=== PATIENT | female | born 1950 | race Caucasian/White ===

== ENCOUNTER 2020-01-27 20:13 | Emergency (ER) | payer MEDICARE, BC ==
[2020-01-27 22:33] VITALS: BP 169/81; PULSE 85
--- NOTE | 2020-01-27 22:59 | EDM.PDOC ---
ED HPI GENERAL MEDICAL PROBLEM - General Chief Complaint: Bite:Animal, Insect Stated Complaint: BEE STING Time Seen by Provider: 01/27/20 22:40 Source of Information: Reports: Patient History Limitations: Reports: No Limitations - History of Present Illness INITIAL COMMENTS - FREE TEXT/NARRATIVE: 69-year-old female who was stung in several places 5 days ago, including the right forearm, the posterior left lower leg, the ankle and the abdomen. The sting gelacio on her right forearm and the left lateral thigh as well as the ankle have been persistently itching and starting to turn more red but she is scratching them frequently. She is tried some topical anti-itch and hydrocortisone but it is not improving rapid enough so she came in to be checked. The one bothering her the most is on her right flexor surface of her forearm. No fevers or chills, no respiratory symptoms. Onset: Sudden Duration: Day(s): (5 days ago) Associated Symptoms: Reports: No Other Symptoms Right Leg Pain Score (Numeric/FACES): 7 - Related Data Allergies Allergy/AdvReac Type Severity Reaction Status Date / Time Latex, Natural Rubber Allergy Rash Verified 01/27/20 22:28 tuna fish Allergy Swollen Uncoded 01/27/20 22:28 Tongue Home Meds: Home Meds Aspirin [Samantha Chewable Aspirin] 81 mg PO DAILY 01/04/15 [History] Liraglutide [Victoza] 12 mg SQ DAILY 01/04/15 [History] Simvastatin [Zocor] 40 mg PO DAILY 01/04/15 [History] Warfarin Sodium [Jantoven] 4 mg PO DAILY 01/04/15 [History] metFORMIN [Glucophage] 1,000 mg PO DAILY 01/04/15 [History] Insulin Degludec [Tresiba] 130 unit SQ DAILY 01/27/20 [History] Venlafaxine [Effexor] 75 mg PO DAILY 01/27/20 [History] Past Medical History HEENT History: Reports: Impaired Vision Cardiovascular History: Reports: High Cholesterol [employer] History: Reports: Musculoskeletal History: Reports: Fracture, Other (See Below) Other Musculoskeletal History: left ankle ORIF plates and screws Neurological History: Reports: CVA Endocrine/Metabolic History: Reports: Diabetes, Type II Oncologic (Cancer) History: Reports: Breast Social & Family History - Tobacco Use Smoking Status *Q: Never Smoker - Caffeine Use Caffeine Use: Reports: None - Recreational Drug Use Recreational Drug Use: No ED ROS GENERAL - Review of Systems Review Of Systems: See Below Constitutional: Denies: Fever, Chills HEENT: Reports: No Symptoms Respiratory: Denies: Shortness of Breath Cardiovascular: Denies: Chest Pain GI/Abdominal: Denies: Nausea, Vomiting Skin: Reports: Pruritis, Erythema Neurological: Reports: No Symptoms ED EXAM, ANIMAL BITE - Physical Exam Exam: See Below Exam Limited By: No Limitations General Appearance: Alert, No Apparent Distress Head: Atraumatic Respiratory/Chest: No Respiratory Distress, Lungs Clear Extremities: Other (On the right flexor surface of the forearm there is a 5 cm wide erythematous slightly raised macular lesion, well-demarcated. There are less inflamed red macules on the right ankle and left posterior lateral thigh) Neurological: Alert, Oriented Course - Vital Signs Last Recorded V/S: Last Vital Signs Temp 97.8 F 01/27/20 22:44 Pulse 85 01/27/20 22:44 Resp 16 01/27/20 22:44 BP 169/81 H 01/27/20 22:44 Pulse Ox 94 L 01/27/20 22:44 - Re-Assessments/Exams Free Text/Narrative Re-Assessment/Exam: 01/27/20 23:44 Reassured the patient that these do not appear to be infected, she can continue Benadryl and I gave her some 0.1% triamcinolone cream to use 4 times daily. Recheck in 2 to 3 days if not improving satisfactorily. Departure - Departure Time of Disposition: 23:29 Disposition: Home, Self-Care 01 Clinical Impression: Accidental bee sting - Discharge Information Instructions: Bee, Wasp, or Hornet Sting, Adult Referrals: PCP,None [Primary Care Provider] - Forms: ED Department Discharge Care Plan Goals: Rub triamcinolone cream into the sting areas 4 times a day, cool compresses may be helpful, and recheck if worsening despite using the stronger steroid especially if you develop fever or increased redness. Sepsis Event Note (ED) - Evaluation Sepsis Screening Result: No Definite Risk - Focused Exam Vital Signs: Vital Signs Temp Pulse Resp BP Pulse Ox 01/27/20 22:44 97.8 F 85 16 169/81 H 94 L 01/27/20 22:28 97.8 F 85 16 169/81 H 94 L
== END 2020-01-27 23:29 | disposition home or self-care (01) ==
LOC: JP.ED 20:13
DX: T63.441A Toxic effect of venom of bees, accidental (unintentional), initial encounter (principal); E78.00 Pure hypercholesterolemia, unspecified; E11.9 Type 2 diabetes mellitus without complications; Z79.82 Long term (current) use of aspirin; Z79.01 Long term (current) use of anticoagulants; Z79.4 Long term (current) use of insulin; Z91.040 Latex allergy status; Z91.013 Allergy to seafood
CPT/HCPCS: 99282

== ENCOUNTER 2023-03-29 10:43 | Inpatient (IN) | payer MEDICARE, BC ==
[2023-03-29 12:47] LABS: BASOPHILS ABSOLUTE AUTO 0.07 K/uL (0.00-0.10); BASOPHILS PERCENT AUTO 0.4 % (0.1-1.3); EOSINOPHILS ABSOLUTE AUTO 0.23 K/uL (0.00-0.40); EOSINOPHILS PERCENT AUTO 1.2 % (0.0-5.4); HEMATOCRIT 43.6 % (34.3-46.0); HEMOGLOBIN 14.9 g/dL (11.2-15.5); IMMATURE GRAN ABSOLUTE AUTO 0.18 K/uL (0.00-0.23); IMMATURE GRAN PERCENT AUTO 0.9 % (0.0-0.7); LYMPHOCYTES ABSOLUTE AUTO 2.21 K/uL (0.8-3.3); LYMPHOCYTES PERCENT AUTO 11.5 % (11.4-47.7); MEAN CORPUSCULAR HEMOGLOBIN 31.3 pg (31.6-35.5); MEAN CORPUSCULAR HGB CONC 34.2 g/dL (31.6-35.5); MEAN CORPUSCULAR VOLUME 91.6 fL (81.4-99.0); MONOCYTES ABSOLUTE AUTO 0.77 K/uL (0.20-0.90); NEUTROPHILS ABSOLUTE AUTO 15.72 K/uL (1.0-7.6); PLATELET COUNT,PLT 326 K/uL (130-375); RED BLOOD CELL COUNT 4.76 M/uL (3.77-5.24); WHITE BLOOD CELL COUNT,WBC 19.2 K/uL (3.2-11.0)
[2023-03-29 13:05] LABS: INR 3.6; PROTHROMBIN TIME 33.4 sec (9.2-10.6)
[2023-03-29] MEDS ORDERED: Naloxone 0.4 MG/ML SDV IVPUSH PRN ×2 (14:11→15:59)
[2023-03-29] MEDS ORDERED: HYDROmorphone 0.5 MG/0.5 ML Syringe IVPUSH ONE (14:11)
[2023-03-29 14:40] LABS: A/G RATIO 0.8 (1.2-2.2); ALANINE AMINOTRANSFERASE,ALT 31 U/L (12-78); ALBUMIN 3.6 g/dL (3.4-5.0); ALKALINE PHOSPHATASE 56 U/L (46-116); ASPARTATE AMNIOTRANSFERASE,AST 23 U/L (15-37); BILIRUBIN TOTAL 0.7 mg/dL (0.2-1.0); BLOOD UREA NITROGEN,BUN 18 mg/dL (7-18); CALCIUM 9.5 mg/dL (8.5-10.1); CARBON DIOXIDE,CO2 28 mmol/L (21-32); CHLORIDE,CL 100 mmol/L (100-108); CREATININE 0.9 mg/dL (0.6-1.0); EST CRCL DRUG DOSING (CG) 49.35 mL/min; ESTIMATED GFR 67 mL/min (>60); GLUCOSE RANDOM 267 mg/dL (74-106); POTASSIUM,K 4.6 mmol/L (3.6-5.2); PROTEIN TOTAL,TP 8.1 g/dL (6.4-8.2); SODIUM,NA 138 mmol/L (140-148)
[2023-03-29 14:47] LABS: ANION GAP 14.6 mmol/L (5.0-14.0)
[2023-03-29] MEDS ORDERED: Glucose Gel 15 GM in 37.5 GM Tube PO PRN (15:59)
[2023-03-29] MEDS ORDERED: Polyethylene Glycol 3350 Powder 17 GM Packet PO PRN (15:59)
[2023-03-29] MEDS ORDERED: 50% Dextrose in Water 50 ML Syringe IV PRN (15:59)
[2023-03-29] MEDS ORDERED: HYDROmorphone 0.5 MG/0.5 ML Syringe IVPUSH PRN (15:59)
[2023-03-29] MEDS ORDERED: Albuterol 0.083% 2.5 MG/3 ML Neb Soln NEB PRN (15:59)
[2023-03-29] MEDS ORDERED: Sodium Chloride 0.9% 10 ML Syringe FLUSH PRN (15:59)
[2023-03-29] MEDS ORDERED: Ondansetron 4 MG/2 ML SDV IV PRN (15:59)
[2023-03-29] MEDS: Sodium Chloride 0.9% 1,000 ML IV SCH (16:19)
[2023-03-29] MEDS: oxyCODONE 5 MG Tab PO PRN ×2 (16:47→20:35)
[2023-03-29] MEDS: Insulin Lispro 100 Unit/ML 3 ML KwikPen SUBCUT SCH ×2 (17:48→21:17)
[2023-03-30] MEDS: oxyCODONE 5 MG Tab PO PRN ×5 (00:46→17:47)
[2023-03-30] MEDS: Acetaminophen 325 MG Tab PO PRN ×2 (00:47→20:48)
[2023-03-30] MEDS: Sodium Chloride 0.9% 1,000 ML IV SCH (00:49)
[2023-03-30 04:43] LABS: BASOPHILS ABSOLUTE AUTO 0.06 K/uL (0.00-0.10); BASOPHILS PERCENT AUTO 0.6 % (0.1-1.3); EOSINOPHILS ABSOLUTE AUTO 0.29 K/uL (0.00-0.40); EOSINOPHILS PERCENT AUTO 2.8 % (0.0-5.4); HEMOGLOBIN 11.7 g/dL (11.2-15.5); IMMATURE GRAN ABSOLUTE AUTO 0.04 K/uL (0.00-0.23); IMMATURE GRAN PERCENT AUTO 0.4 % (0.0-0.7); LYMPHOCYTES ABSOLUTE AUTO 2.82 K/uL (0.8-3.3); LYMPHOCYTES PERCENT AUTO 27.1 % (11.4-47.7); MEAN CORPUSCULAR HEMOGLOBIN 30.7 pg (31.6-35.5); MEAN CORPUSCULAR HGB CONC 33.4 g/dL (31.6-35.5); MEAN CORPUSCULAR VOLUME 91.9 fL (81.4-99.0); MONOCYTES ABSOLUTE AUTO 0.64 K/uL (0.20-0.90); MONOCYTES PERCENT AUTO 6.1 % (3.3-12.6); NEUTROPHILS ABSOLUTE AUTO 6.57 K/uL (1.0-7.6); PLATELET COUNT,PLT 247 K/uL (130-375); RED BLOOD CELL COUNT 3.81 M/uL (3.77-5.24); WHITE BLOOD CELL COUNT,WBC 10.4 K/uL (3.2-11.0)
[2023-03-30 04:52] LABS: INR 3.5; PROTHROMBIN TIME 33.1 sec (9.2-10.6)
[2023-03-30 04:57] LABS: CALCIUM 8.1 mg/dL (8.5-10.1); CREATININE 0.7 mg/dL (0.6-1.0); EST CRCL DRUG DOSING (CG) 63.45 mL/min; MAGNESIUM 1.5 mg/dL (1.8-2.4); POTASSIUM,K 3.9 mmol/L (3.6-5.2)
[2023-03-30 05:20] LABS: ANION GAP 11.9 mmol/L (5.0-14.0)
[2023-03-30 06:08] LABS: APPEARANCE,URINE CLEAR (CLEAR); BILIRUBIN,URINE NEGATIVE (NEGATIVE); COLOR,URINE YELLOW (YELLOW); GLUCOSE,URINE 500 mg/dL (NEGATIVE); KETONES,URINE NEGATIVE (NEGATIVE); LEUKOCYTE ESTERASE,URINE NEGATIVE (NEGATIVE); NITRITE,URINE NEGATIVE (NEGATIVE); OCCULT BLOOD,URINE NEGATIVE (NEGATIVE); PH,URINE 5.5 (5.0-8.0); PROTEIN,URINE NEGATIVE (NEGATIVE); UROBILINOGEN,URINE 0.2 EU/dL (0.2-1.0)
[2023-03-30 06:18] LABS: BACTERIA,URINE NOT SEEN; EPITHELIAL CELLS,URINE RARE; RBC,URINE 0-5 (0-5); WBC,URINE 0-5 (0-5)
[2023-03-30 06:19] LABS: AMORPHOUS SEDIMENT,URINE NOT SEEN; MUCUS,URINE NOT SEEN
[2023-03-30] MEDS ORDERED: Venlafaxine 75 MG Tab PO SCH (09:00)
[2023-03-30] MEDS: Venlafaxine 75 MG Cap.ER PO SCH (09:22)
[2023-03-30] MEDS: Magnesium Oxide 400 MG Tab PO SCH ×2 (09:22→20:48)
[2023-03-30] MEDS: Aspirin 81 MG Tab.Chew PO SCH (09:23)
[2023-03-30] MEDS: atorvaSTATin 20 MG Tab PO SCH (09:23)
[2023-03-30] MEDS: Insulin Lispro 100 Unit/ML 3 ML KwikPen SUBCUT SCH ×4 (09:24→20:49)
[2023-03-30] MEDS: Insulin Glargine,Human Rec. Analog 100 Units/ML 3 ML Pen SUBCUT SCH (09:26)
[2023-03-30] MEDS: Magnesium Sulfate/Water 2 GM in Premix Bag 1 BAG IV SCH ×3 (09:36→20:52)
[2023-03-30] MEDS ORDERED: SEMAGLUTIDE 1 MG/0.75 ML SUBCUT SCH (12:00)
[2023-03-31 04:45] LABS: INR 2.2; PROTHROMBIN TIME 20.9 sec (9.2-10.6)
[2023-03-31] MEDS: oxyCODONE 5 MG Tab PO PRN (08:16)
[2023-03-31] MEDS: Aspirin 81 MG Tab.Chew PO SCH (08:17)
[2023-03-31] MEDS: atorvaSTATin 20 MG Tab PO SCH (08:18)
[2023-03-31] MEDS: Venlafaxine 75 MG Cap.ER PO SCH (08:18)
[2023-03-31] MEDS: Insulin Lispro 100 Unit/ML 3 ML KwikPen SUBCUT SCH ×4 (08:19→21:25)
[2023-03-31] MEDS: Insulin Glargine,Human Rec. Analog 100 Units/ML 3 ML Pen SUBCUT SCH (08:20)
[2023-03-31] MEDS: Magnesium Oxide 400 MG Tab PO SCH (09:22)
[2023-03-31] MEDS ORDERED: Polyethylene Glycol 3350 Powder 17 GM Packet PO ONE (09:59)
[2023-03-31] MEDS ORDERED: Sodium Phosphate,Monobasic/Sodium Phosphate,Dibasic Enema 133 ML Bottle RECTAL PRN (09:59)
[2023-03-31] MEDS ORDERED: Bisacodyl 10 MG Supp RECTAL ONE ×2 (10:10→18:14)
[2023-03-31] MEDS ORDERED: Venlafaxine 75 MG Cap.ER PO SCH (10:15)
[2023-03-31] MEDS: metFORMIN 500 MG Tab PO SCH (17:39)
[2023-03-31] MEDS: Acetaminophen 325 MG Tab PO PRN (19:41)
[2023-03-31] MEDS ORDERED: Non-Formulary Medication 1 Each (Metformin [Glucophage] 1,000 MG) PO SCH (21:00)
[2023-04-01 04:34] LABS: PROTHROMBIN TIME 19.3 sec (9.2-10.6)
[2023-04-01] MEDS: Insulin Lispro 100 Unit/ML 3 ML KwikPen SUBCUT SCH (07:41)
[2023-04-01] MEDS: oxyCODONE 5 MG Tab PO PRN (07:56)
[2023-04-01] MEDS: metFORMIN 500 MG Tab PO SCH (08:28)
[2023-04-01] MEDS: Venlafaxine 75 MG Cap.ER PO SCH (08:29)
[2023-04-01] MEDS: atorvaSTATin 20 MG Tab PO SCH (08:29)
[2023-04-01] MEDS: Aspirin 81 MG Tab.Chew PO SCH (08:29)
[2023-04-01] MEDS: Insulin Glargine,Human Rec. Analog 100 Units/ML 3 ML Pen SUBCUT SCH (08:31)
[2023-04-01] MEDS ORDERED: Non-Formulary Medication 1 Each (Metformin [Glucophage] 1,000 MG Tablet) PO SCH (09:00)
[2023-04-01] MEDS ORDERED: oxyCODONE 5 MG Tab PO ONE (10:07)
[2023-04-01 10:22] VITALS: BP 153/61; PULSE 88
== END 2023-04-01 10:20 | DRG 536 ==
LOC: JP.ED 10:43 → JP.MS 14:24
PROVIDERS: ADMIT Hospitalist; ATTEND Hospitalist
DX: S32.592A Other specified fracture of left pubis, initial encounter for closed fracture (principal); E78.5 Hyperlipidemia, unspecified; E11.9 Type 2 diabetes mellitus without complications; R01.1 Cardiac murmur, unspecified; W10.8XXA Fall (on) (from) other stairs and steps, initial encounter; E83.42 Hypomagnesemia; Z91.040 Latex allergy status; Z91.013 Allergy to seafood; Z79.82 Long term (current) use of aspirin; Z88.8 Allergy status to other drugs, medicaments and biological substances; Z86.73 Personal history of transient ischemic attack (TIA), and cerebral infarction without residual deficits; Z87.81 Personal history of (healed) traumatic fracture; Z79.01 Long term (current) use of anticoagulants; Z79.4 Long term (current) use of insulin; Z79.899 Other long term (current) drug therapy; Y92.59 Other trade areas as the place of occurrence of the external cause
CPT/HCPCS: 36415; 71045; 71045-26; 71250; 71250-26; 73502-26-LT; 73502-LT; 80048; 80053; 81001; 82947; 83735; 85025; 85610; 93306; 97110-GP; 97161-GP; 97165-GO; 97530-GP; 99222; 99232; 99238; 99284; A9270-GY; J1170; J1815; J1815-GY; J3475; J7030; U0002